=== PATIENT | female | born 1945 | race Caucasian/White ===

== ENCOUNTER → 2019-04-28 | Outpatient (CLI) | payer OTHER | LOC: M.MRI 07:55 | DX: M17.11 Unilateral primary osteoarthritis, right knee (principal); M67.461 Ganglion, right knee; G89.29 Other chronic pain ==

== ENCOUNTER 2019-06-08 06:46 | Inpatient (IN) | payer OTHER ==
[2019-05-27 09:26] LABS: HEMATOCRIT 38.7 % (37.0-47.0); HEMOGLOBIN 13.1 gm/dL (12.0-15.0); MCH 29.5 pg (26.0-34.0); MCHC 33.9 g/dL (28.0-37.0); MPV 9.4 fl. (7.2-11.1); RBC 4.44 mil/uL (4.20-5.00); RDW-CV 14.6 % (10.5-14.5); WBC 4.3 thou/uL (4.0-11.0)
[2019-05-27 09:30] LABS: URINE BILIRUBIN NEGATIVE (Negative); URINE BLOOD NEGATIVE (Negative); URINE CLARITY CLEAR; URINE COLOR YELLOW; URINE GLUCOSE-RANDOM NEGATIVE (Negative); URINE KETONES NEGATIVE (Negative); URINE LEUKOCYTES-REFLEX NEGATIVE (Negative); URINE NITRITE-REFLEX NEGATIVE (Negative); URINE PROTEIN NEGATIVE (Negative); URINE SPECIFIC GRAVITY <= 1.005 (1.005-1.030); URINE UROBILINOGEN 0.2 E.U./dl (0.2-1.0)
[2019-05-27 09:36] LABS: PROTIME 10.6 Seconds (9.20-11.50)
[2019-05-27 09:40] LABS: ALBUMIN 3.5 g/dL (3.4-5.0); CALCIUM 9.2 mg/dL (8.5-10.1); POTASSIUM 3.8 mmol/L (3.5-5.1); TOTAL BILIRUBIN 0.5 mg/dL (<0.1-1.0); TOTAL PROTEIN 7.2 g/dL (6.4-8.2)
--- NOTE | 2019-05-27 16:17 | EKG ---
[place] [address] ELECTROCARDIOGRAM REPORT Name: ELIANA ESPARZA Room: PRE IN [facility]#: [id number] Admission: Attend Phys: Trent Loomis Discharge: Date of : 49 Report #: [id number] THIS REPORT FOR: //name// [facility] Test Date: 2019-05-27 Test Time: 09:38:01 Pat Name: ELIANA ESPARZA Department: Room: Gender: F Level Designer: RT : 1945 Requested By: Esteban Singh Order Number: [id number] MD: Pete Brooks Measurements Intervals [place] Rate: 58 P: 50 LA: 202 QRS: 6 QRSD: 106 T: 40 QT: 457 QTc: 449 Interpretive Statements Sinus rhythm Low voltage, extremity and precordial leads Compared to ECG 10/03/2008 11:04:53 Low QRS voltage now present Electronically Signed On 05-27-2019 16:16:48 CDT by Pete Brooks [email or web address] <ELECTRONICALLY SIGNED> By: Pete Brooks MD, [facility] 05/27/19 1616 0938 7 Pete Brooks MD, FACC /EPI
[~2019-06-08] VITALS: Ht 172.7 cm; Wt 104.3 kg
[~2019-06-08 06:46] MED LIST: FLONASE 0.05%50 MCG NASAL; IBUPROFEN 200200 M1 PO; PRILOSEC OTC20 MG PO
[2019-06-08 07:51] VITALS: BP 138/71
[2019-06-08 22:35] VITALS: BP 157/64
[2019-06-09 04:59] LABS: HEMATOCRIT 30.7 % (37.0-47.0); HEMOGLOBIN 10.4 gm/dL (12.0-15.0)
[2019-06-09 05:18] VITALS: BP 130/64
[2019-06-09] MEDS ORDERED: COLACE 100 MG100 MG PO (07:30)
[2019-06-09] MEDS ORDERED: XARELTO10 MG PO (07:30)
[2019-06-09] MEDS ORDERED: PERCOCET PO (07:30)
[2019-06-09 08:15] VITALS: BP 123/58
[2019-06-09 12:00] VITALS: BP 128/65
[2019-06-09 13:54] VITALS: BP 128/65
[2019-06-09 15:30] VITALS: BP 128/65
[2019-06-09 16:45] VITALS: BP 128/65
--- NOTE | 2019-06-09 20:55 | OP ---
[facility] [address] [place] [address] OPERATIVE REPORT Name: ELIANA ESPARZA Room: [address] M.R.#: [id number] Admission: 06/08/19 Attend Phys: Trent Loomis Discharge: 06/09/19 Date of : 49 Report #: [id number] THIS REPORT FOR: //name// CC: FAM unknown Esteban Miller DATE OF SERVICE: 06/08/2019 PREOPERATIVE DIAGNOSIS: Right knee osteoarthritis. POSTOPERATIVE DIAGNOSIS: Right knee osteoarthritis. PROCEDURE: Right total knee arthroplasty. SURGEON: Esteban Singh II, DO. PROGRAM DIRECTOR SCOUTING: JEANNE Thompson. ANESTHESIA: LMA with spinal and adductor canal block. ESTIMATED BLOOD LOSS: 50 mL. ANTIBIOTICS: Ancef preoperatively. DRAINS: Medium Hemovac. COMPLICATIONS: None. CONDITION OF THE PATIENT: Stable to recovery room. IMPLANTS: Listed in the operative record and progress note. BRIEF HISTORY: The patient is seen in the preoperative area. Preop H and P was performed. Site was marked, questions were answered. Risks and benefits were discussed with the patient in detail about surgery. The patient wished to proceed, assuming all risks. DESCRIPTION OF PROCEDURE: The patient was taken to the operative suite and placed supine on the operating table, given appropriate anesthesia. The patient had a well-padded tourniquet applied to the upper thigh, which was inflated to 300 mmHg after gravity exsanguination. The operative knee was sterilely prepped and draped. Surgery began by midline incision. This was carried down to the subcutaneous tissues. A medial parapatellar arthrotomy was performed and carried down to bone. The patella was then everted and excess soft tissue was removed from around the femur. Femoral cutting block was then applied, [place] [address] OPERATIVE REPORT Name: ELIANA ESPARZA Room: [address] IN [facility]#: [id number] Admission: 06/08/19 Attend Phys: Trent Loomis Discharge: 06/09/19 Date of : 49 Report #: [id number] with a drop sean for rotational alignment, pinned in appropriate position and appropriate cuts were made. A 4-in-1 cutting block was then applied, checked for rotational alignment, pinned in appropriate position and appropriate cuts were made. The tibia was then exposed. Excess meniscus was removed. Retractor was placed on collateral ligaments. The tibial cutting block was then applied, pinned in appropriate position, checked with a drop sean for rotational alignment and slope and appropriate cut was made. The tibial bone was removed. Tibial base plate was then applied, checked for rotational alignment with the drop sean and pinned in appropriate position. Femur was then applied and box cut was reamed. This was then trialed with appropriate spacer, which showed excellent fit and fill and excellent stability of knee throughout all range of motion. The patella was reamed in appropriate fashion and sized to appropriate size. Three peg holes were drilled and it was then trialed and showed excellent flexion, extension, excellent tracking of the patella within the groove. These trials were removed. The tibia was punched in appropriate fashion. Bone ends were cleansed with Pulsavac irrigation and cement was mixed and applied to final implants. These were then malleted into position and held the knee in extension and compressed to allow cement to cure. After it cured, excess was removed using a [place] and osteotome. The wound was then copiously irrigated and the final spacer was then malleted in position. The tourniquet was deflated. Hemostasis was obtained with electrocautery. Pain cocktail was injected. PRP gel sprayed throughout internal aspects of the knee. Medium Hemovac drain was applied. Capsule was closed with #2 FiberWire and #1 Vicryl in [id number] fashion. Skin was closed with 2-0 Vicryl and running 3-0 Monocryl. Dermabond and sterile dressing applied. Casimiro wrap and PolarCare applied. The patient transported to recovery room in stable condition. Counts were correct throughout the procedure. <ELECTRONICALLY SIGNED> By: Esteban Singh II, DO 06/09/19 2055 0730 [id number] Singh II, DO /nt
== END 2019-06-09 16:40 | disposition home health service (06) | DRG 470 ==
LOC: M.PRE 06:46 → M.TBA 07:09 → M.3W 07:09 → M.TBA-ER 07:09 → M.PRE 07:28 → M.TBA 08:51 → M.3W 11:17 → M.PRE 13:06 → M.3W 06-09 16:40
PROVIDERS: Orthopaedic Surgery; ADMIT Internal Medicine
PROC: 0SRC0J9 Replacement of Right Knee Joint with Synthetic Substitute, Cemented, Open Approach (ICD-10-PCS; principal; 2019-06-08)
DX: M17.11 Unilateral primary osteoarthritis, right knee (principal); K21.9 Gastro-esophageal reflux disease without esophagitis; E78.00 Pure hypercholesterolemia, unspecified; G43.909 Migraine, unspecified, not intractable, without status migrainosus; D64.9 Anemia, unspecified; Z88.0 Allergy status to penicillin; Z88.1 Allergy status to other antibiotic agents; Z88.8 Allergy status to other drugs, medicaments and biological substances; Z23 Encounter for immunization